=== PATIENT | male | born 1985 | race Asian ===

== ENCOUNTER 2019-07-09 09:30 | Emergency (ER) | payer OTHER ==
[~2019-07-09] VITALS: Ht 167.6 cm; Wt 68.0 kg
[2019-07-09 09:34] VITALS: BP 125/78
--- NOTE | 2019-07-09 09:49 | NUR ---
COVID SWAB SENT TO LAB.
== END 2019-07-09 09:50 | disposition home or self-care (01) ==
LOC: ER 09:30
DX: Z03.818 Encounter for observation for suspected exposure to other biological agents ruled out (principal)
CPT/HCPCS: 99283; U0003

== ENCOUNTER 2019-09-28 17:30 | Emergency (ER) | payer OTHER ==
[~2019-09-28] VITALS: Ht 167.6 cm; Wt 68.0 kg
[2019-09-28 17:37] VITALS: BP 125/84
--- NOTE | 2019-09-28 17:55 | NUR ---
covid 19 swab collected and sent to lab
--- NOTE | 2019-09-28 17:58 | NUR ---
Patient discharged to home in stable condition. Written and verbal after care instructions given. Patient verbalizes understanding of instruction.
== END 2019-09-28 17:58 | disposition home or self-care (01) ==
LOC: ER 17:30
DX: Z20.828 Contact with and (suspected) exposure to other viral communicable diseases (principal)
CPT/HCPCS: 99283; C9803; U0003